=== PATIENT | male | born 1960 | race African-American/Black ===

== ENCOUNTER 2022-11-15 12:23 | Emergency (ER) | payer BC, OTHER ==
[~2022-11-15] VITALS: Ht 162.6 cm; Wt 63.5 kg
[2022-11-15 12:33] VITALS: O2SAT 95
[2022-11-15] MEDS ORDERED: MUPI15CR TP (13:10)
[2022-11-15] MEDS ORDERED: IBUP-1955 PO (13:10)
[2022-11-15] MEDS ORDERED: CEPH500T PO (13:10)
[2022-11-15] MEDS ORDERED: SULF1TAB48 PO (13:10)
--- NOTE | 2022-11-15 13:16 | NUR ---
Patient discharged to home in stable condition. Written and verbal after care instructions given. Patient verbalizes understanding of instructions. Stressed follow up or return to ER for worsening s/s.
== END 2022-11-15 13:24 | disposition home or self-care (01) ==
LOC: ER 12:23
DX: L60.0 Ingrowing nail (principal); L08.9 Local infection of the skin and subcutaneous tissue, unspecified; S61.35 Open bite of finger with damage to nail; V00-Y99 External causes of morbidity
CPT/HCPCS: A4663